=== PATIENT | male | born 1935 | race Caucasian/White ===

== ENCOUNTER 2016-10-19 11:46 | Emergency (ER) | payer MEDICARE ==
[~2016-10-19] VITALS: Ht 162.6 cm; Wt 71.7 kg
[2016-10-19 11:46] VITALS: BP_SYST 180
[2016-10-19] MEDS ORDERED: ALBUTEROL SULFATE 0.083% 2.5 MG/3 ML VIAL.NEB INH ONE (12:00)
[2016-10-19] MEDS ORDERED: methylPREDNISolone SOD SUCC/PF 62.5 MG/ML VIAL IVP ONE (12:00)
[2016-10-19] MEDS ORDERED: LEVOFLOXACIN 500 MG/D5W 100 ML IV ONE (12:00)
[2016-10-19] MEDS ORDERED: ALBUTEROL SULFATE 0.083% 2.5 MG/3 ML VIAL.NEB INH PRN (12:00)
[2016-10-19] MEDS ORDERED: FURO-149 PO (12:09)
[2016-10-19] MEDS ORDERED: CARV6.2554 PO (12:09)
[2016-10-19] MEDS ORDERED: LIP40 PO (12:09)
[2016-10-19] MEDS ORDERED: FOLI-43 PO (12:09)
[2016-10-19] MEDS ORDERED: POTA-118 PO (12:09)
[2016-10-19] MEDS ORDERED: CLOP75TA2 PO (12:09)
[2016-10-19] MEDS ORDERED: ASPI-1063 PO (12:09)
[2016-10-19] MEDS ORDERED: GLU500 PO ×2 (12:09)
[2016-10-19] MEDS ORDERED: AMI200 PO (12:09)
[2016-10-19] MEDS ORDERED: FLUT16SP16 NS (12:09)
[2016-10-19 12:47] LABS: BASOPHILS # (AUTO) 0.3 K/uL (0.0-0.2); BASOPHILS % (AUTO) 1.8 % (0.0-2.0); EOSINOPHILS # (AUTO) 0.1 K/uL (0.0-0.4); EOSINOPHILS % (AUTO) 0.9 % (0.0-4.0); HEMATOCRIT 32.7 % (36-54); HEMOGLOBIN 11.1 g/dL (14.0-18.0); LYMPHOCYTES # (AUTO) 1.1 K/uL (1.0-5.5); MEAN CORPUSCULAR HEMOGLOBIN 30 pg (27-31); MEAN CORPUSCULAR HGB CONC 34 % (32-36); MEAN CORPUSCULAR VOLUME 87 fL (79.0-98.0); MONOCYTES % (AUTO) 7.2 % (1.7-9.3); NEUTROPHILS # (AUTO) 11.7 K/uL (1.8-7.7); NEUTROPHILS % (AUTO) 82.1 % (40.0-70.0); PLATELET COUNT (AUTO) 299 K/uL (130-430); RED BLOOD CELL COUNT(AUTO) 3.76 MIL/uL (4.2-6.2); RED CELL DISTRIBUTION WIDTH 14.5 % (9.0-15.0); WHITE BLOOD COUNT (AUTO) 14.2 K/uL (4.8-10.8)
[2016-10-19 12:53] LABS: ANION GAP 6 (5-15); CALCIUM 9.1 mg/dL (8.4-11.0); CHLORIDE 104 mmol/L (98-107); CREATININE 2.08 mg/dL (0.55-1.30); GLUCOSE 251 mg/dL (70-99); SODIUM SERUM 133 mmol/L (136-145); UREA NITROGEN, BLOOD 35 mg/dL (8-21)
[2016-10-19 13:07] LABS: INR 1.2 (0.80-1.20); PROTHROMBIN TIME 13.1 SECS (9.5-12.5)
[2016-10-19 13:08] LABS: ALANINE AMINOTRANSFERASE 169 U/L (12-78); ALBUMIN 3.6 g/dL (3.4-4.8); ASPARTATE AMINOTRANSFERASE 80 U/L (10-37); TOTAL BILIRUBIN 0.6 mg/dL (0.0-1.0); TOTAL PROTEIN, SERUM 7.5 g/dL (6.4-8.3)
[2016-10-19] MEDS ORDERED: FUROSEMIDE 40 MG/4 ML VIAL IVP ONE (14:00)
[2016-10-19 14:33] LABS: ABG TOTAL HEMOGLOBIN 10.4 G/dL (12.0-18.0); BLOOD GAS COHb% 0.1 % (0.5-1.5); BLOOD GAS HHB 8.1 % (0.0-6.0); BLOOD O2Hb% 91.5 % (94.0-97.0)
[2016-10-19 18:05] VITALS: BP_SYST 142
== END 2016-10-19 18:04 | disposition short-term general hospital (02) ==
LOC: SED 11:46
DX: J44.1 Chronic obstructive pulmonary disease with (acute) exacerbation (principal); J18.9 Pneumonia, unspecified organism; J44.9 Chronic obstructive pulmonary disease, unspecified; I12.9 Hypertensive chronic kidney disease with stage 1 through stage 4 chronic kidney disease, or unspecified chronic kidney disease; N18.9 Chronic kidney disease, unspecified; I48.91 Unspecified atrial fibrillation; E11.22 Type 2 diabetes mellitus with diabetic chronic kidney disease; I25.2 Old myocardial infarction; D64.9 Anemia, unspecified; Z79.82 Long term (current) use of aspirin; Z86.73 Personal history of transient ischemic attack (TIA), and cerebral infarction without residual deficits; Z95.1 Presence of aortocoronary bypass graft
CPT/HCPCS: 36415; 36600; 71010; 80053; 82803; 83605; 83880; 84484; 85025; 85610; 87040; 93005; 94640; 96365; 96375; 99291; J1940; J1956; J2930